=== PATIENT | female | born 1935 | race Caucasian/White ===

== ENCOUNTER 2022-06-29 11:20 | Inpatient (IN) | payer MEDICARE, BC ==
[~2022-06-29] VITALS: Ht 160 cm; Wt 57.2 kg
[2022-06-29 15:38] VITALS: BP 134/74
[2022-06-29] MEDS ORDERED: DEXTROSE 50%-WATER 25 GM/50 ML SYRINGE IVP PRN (16:30)
[2022-06-29] MEDS ORDERED: TACROLIMUS 0.1% 30 GM OINTMENT TP PRN (16:30)
[2022-06-29] MEDS: MetFORMIN HCL 500 MG TABLET PO SCH (18:55)
[2022-06-29] MEDS: INSULIN LISPRO 100 UNITS/ML SQ PRN ×2 (18:57→22:09)
[2022-06-29 19:16] LABS: GLUCOMETER DEV NAME(LOC) 2WR.2B; GLUCOSE,POINT OF CARE 239 MG/DL (70-110)
[2022-06-29 21:00] VITALS: BP 137/73
[2022-06-29] MEDS: SENNA 187 MG TABLET PO SCH (22:07)
[2022-06-29] MEDS: LevETIRAcetam 500 MG TABLET PO SCH (22:07)
[2022-06-29] MEDS: MELATONIN 3 MG TABLET PO SCH (22:07)
[2022-06-29] MEDS: ETHYL ALCOHOL 62% ANTISEPTIC NASAL SANITIZER 0.6 ML AMPUL NASAL SCH (22:07)
[2022-06-29] MEDS: DOCUSATE SODIUM 100 MG CAPSULE PO SCH (22:07)
[2022-06-29] MEDS: OMEGA-3/DHA/EPA/FISH OIL 1,000 MG CAPSULE PO SCH (22:07)
[2022-06-29 22:46] LABS: GLUCOMETER DEV NAME(LOC) 2WR.2B; GLUCOSE,POINT OF CARE 198 MG/DL (70-110)
[2022-06-30] MEDS: LEVOTHYROXINE SODIUM 88 MCG TABLET PO SCH (06:28)
[2022-06-30 07:10] LABS: BASOPHILS % (AUTO) 0.4 % (0.0-2.0); EOSINOPHILS % (AUTO) 0.3 % (1.0-6.0); HEMATOCRIT 28.3 % (36-46); HEMOGLOBIN 9.8 g/dL (12.0-16.0); LYMPHOCYTES # (AUTO) 2.4 K/uL (1.0-4.8); LYMPHOCYTES % (AUTO) 23.8 % (22.0-44.0); MEAN CORPUSCULAR HEMOGLOBIN 32.7 pg (26.0-34.0); MEAN CORPUSCULAR HGB CONC 34.6 G/dL (31.0-37.0); MEAN CORPUSCULAR VOLUME 94 fL (80-100); MONOCYTES # (AUTO) 0.5 K/uL (0.1-1.0); NEUTROPHILS % (AUTO) 70.5 % (40.0-70.0); PLATELET COUNT (AUTO) 271 K/uL (150-450); RED CELL DISTRIBUTION WIDTH 13.8 % (11.5-14.5)
[2022-06-30 07:40] LABS: ALANINE AMINOTRANSFERASE 14 U/L (12-78); ALBUMIN 2.8 g/dL (3.4-5.0); ALKALINE PHOSPHATASE 58 U/L (46-116); ANION GAP 8 mmol/L (8-16); ASPARTATE AMINOTRANSFERASE 11 U/L (15-37); BILIRUBIN,TOTAL 0.2 mg/dL (0.1-1.0); CALCIUM, TOTAL 9.6 mg/dL (8.8-10.5); CARBON DIOXIDE 27 mmol/L (22-29); CHLORIDE 100 mmol/L (98-107); CREATININE 0.66 mg/dL (0.60-1.30); GLUCOSE,RANDOM 140 mg/dL (70-110); POTASSIUM 3.9 mmol/L (3.5-5.1); SODIUM SERUM 135 mmol/L (136-145); UREA NITROGEN, BLOOD 9 mg/dL (7-18)
[2022-06-30 07:46] LABS: GLOMERULAR FILTR. RATE CALC > 60 mL/min (>60)
[2022-06-30] MEDS: MetFORMIN HCL 500 MG TABLET PO SCH ×2 (08:24→17:18)
[2022-06-30] MEDS: ASPIRIN 81 MG CHEWABLE TABLET PO SCH (08:26)
[2022-06-30] MEDS: CHOLECALCIFEROL (VIT D3) 1,000 UNITS [25 MCG] TABLET PO SCH (08:26)
[2022-06-30] MEDS: LevETIRAcetam 500 MG TABLET PO SCH ×2 (08:26→22:18)
[2022-06-30] MEDS: FAMOTIDINE 20 MG TABLET PO SCH (08:26)
[2022-06-30] MEDS: DOCUSATE SODIUM 100 MG CAPSULE PO SCH ×2 (08:27→22:18)
[2022-06-30] MEDS: MAGNESIUM OXIDE 400 MG TABLET PO SCH (08:27)
[2022-06-30] MEDS: OMEGA-3/DHA/EPA/FISH OIL 1,000 MG CAPSULE PO SCH ×2 (08:28→22:18)
[2022-06-30] MEDS: VITAMIN B COMPLEX/FOLIC ACID 1 TABLET PO SCH (08:28)
[2022-06-30] MEDS: EZETIMIBE 10 MG TABLET PO SCH (08:29)
[2022-06-30] MEDS: CITALOPRAM HYDROBROMIDE 10 MG TABLET PO SCH (08:29)
[2022-06-30] MEDS: LISINOPRIL 5 MG TABLET PO SCH (08:30)
[2022-06-30] MEDS: DEXAMETHASONE 1 MG TABLET PO SCH (08:30)
[2022-06-30] MEDS: LORATADINE 10 MG TABLET PO SCH (08:30)
[2022-06-30] MEDS: KETOCONAZOLE 2% 120 ML SHAMPOO TP SCH (08:31)
[2022-06-30] MEDS: CALCIUM CARBONATE 500 MG TABLET PO SCH (08:31)
[2022-06-30] MEDS: ETHYL ALCOHOL 62% ANTISEPTIC NASAL SANITIZER 0.6 ML AMPUL NASAL SCH ×2 (08:32→22:18)
[2022-06-30 08:39] VITALS: BP 121/61
[2022-06-30] MEDS: INSULIN LISPRO 100 UNITS/ML SQ PRN ×3 (08:39→17:37)
[2022-06-30] MEDS: ACETAMINOPHEN 325 MG TABLET PO PRN ×2 (08:43→15:08)
[2022-06-30 11:36] LABS: GLUCOMETER DEV NAME(LOC) 2WR.1C; GLUCOSE,POINT OF CARE 147 MG/DL (70-110)
[2022-06-30 12:01] LABS: GLUCOMETER DEV NAME(LOC) 2WR.2B; GLUCOSE,POINT OF CARE 164 MG/DL (70-110)
[2022-06-30 18:02] LABS: GLUCOMETER DEV NAME(LOC) 2WR.1C; GLUCOSE,POINT OF CARE 177 MG/DL (70-110)
[2022-06-30 20:30] VITALS: BP 107/51
[2022-06-30] MEDS: MELATONIN 3 MG TABLET PO SCH (22:18)
[2022-06-30] MEDS: SENNA 187 MG TABLET PO SCH (22:18)
[2022-06-30] MEDS: ENOXAPARIN SODIUM 30 MG/0.3 ML PF SYRINGE SQ SCH (22:18)
[2022-07-01 02:11] LABS: GLUCOMETER DEV NAME(LOC) 2WR.1C; GLUCOSE,POINT OF CARE 122 MG/DL (70-110)
[2022-07-01] MEDS: LEVOTHYROXINE SODIUM 88 MCG TABLET PO SCH (06:19)
[2022-07-01 07:06] LABS: GLUCOMETER DEV NAME(LOC) 2WR.2B; GLUCOSE,POINT OF CARE 126 MG/DL (70-110)
[2022-07-01] MEDS ORDERED: DOCUSATE SODIUM 283 MG/5 ML MINI-ENEMA PR PRN (07:45)
[2022-07-01] MEDS ORDERED: *NON-FORMULARY MED [ENTER DRUG, DOSE, FREQ IN COMMENTS] CLINICAL ONE (08:58)
[2022-07-01 09:05] VITALS: BP 140/63
[2022-07-01] MEDS: VITAMIN B COMPLEX/FOLIC ACID 1 TABLET PO SCH (09:13)
[2022-07-01] MEDS: LORATADINE 10 MG TABLET PO SCH (09:16)
[2022-07-01] MEDS: LISINOPRIL 5 MG TABLET PO SCH (09:16)
[2022-07-01] MEDS: CITALOPRAM HYDROBROMIDE 10 MG TABLET PO SCH (09:16)
[2022-07-01] MEDS: MAGNESIUM OXIDE 400 MG TABLET PO SCH (09:16)
[2022-07-01] MEDS: DEXAMETHASONE 1 MG TABLET PO SCH (09:16)
[2022-07-01] MEDS: MetFORMIN HCL 500 MG TABLET PO SCH ×2 (09:16→17:54)
[2022-07-01] MEDS: CALCIUM CARBONATE 500 MG TABLET PO SCH (09:16)
[2022-07-01] MEDS: EZETIMIBE 10 MG TABLET PO SCH (09:16)
[2022-07-01] MEDS: ENOXAPARIN SODIUM 30 MG/0.3 ML PF SYRINGE SQ SCH ×2 (09:16→20:12)
[2022-07-01] MEDS: FAMOTIDINE 20 MG TABLET PO SCH (09:17)
[2022-07-01] MEDS: OMEGA-3/DHA/EPA/FISH OIL 1,000 MG CAPSULE PO SCH ×2 (09:17→20:12)
[2022-07-01] MEDS: CHOLECALCIFEROL (VIT D3) 1,000 UNITS [25 MCG] TABLET PO SCH (09:17)
[2022-07-01] MEDS: ASPIRIN 81 MG CHEWABLE TABLET PO SCH (09:17)
[2022-07-01] MEDS: DOCUSATE SODIUM 250 MG CAPSULE PO SCH ×2 (09:17→20:13)
[2022-07-01] MEDS: LevETIRAcetam 500 MG TABLET PO SCH ×2 (09:17→20:12)
[2022-07-01] MEDS: ETHYL ALCOHOL 62% ANTISEPTIC NASAL SANITIZER 0.6 ML AMPUL NASAL SCH ×2 (09:18→20:13)
[2022-07-01] MEDS: [UNRECOGNIZED DRUG - OTHER] OU SCH ×4 (10:50→20:14)
[2022-07-01] MEDS ORDERED: *NON-FORMULARY MED [ENTER DRUG, DOSE, FREQ IN COMMENTS] CLINICAL SCH (12:00)
[2022-07-01] MEDS: INSULIN LISPRO 100 UNITS/ML SQ PRN ×3 (12:32→21:07)
[2022-07-01] MEDS: ACETAMINOPHEN 325 MG TABLET PO PRN ×2 (14:04→20:11)
[2022-07-01 14:16] LABS: GLUCOMETER DEV NAME(LOC) 2WR.2B; GLUCOSE,POINT OF CARE 229 MG/DL (70-110)
[2022-07-01] MEDS ORDERED: SODIUM PHOS/SODIUM BIPHOS 133 ML ENEMA PR PRN (17:15)
[2022-07-01] MEDS: DOCUSATE SODIUM 283 MG/5 ML MINI-ENEMA PR SCH (18:01)
[2022-07-01 20:11] VITALS: BP 114/56
[2022-07-01] MEDS: MELATONIN 3 MG TABLET PO SCH (20:12)
[2022-07-01] MEDS: SENNA 187 MG TABLET PO SCH (20:12)
[2022-07-01 20:21] LABS: GLUCOMETER DEV NAME(LOC) 2WR.2B; GLUCOSE,POINT OF CARE 148 MG/DL (70-110)
[2022-07-01 21:21] LABS: GLUCOMETER DEV NAME(LOC) 2WR.2B; GLUCOSE,POINT OF CARE 147 MG/DL (70-110)
[2022-07-02] MEDS: LEVOTHYROXINE SODIUM 88 MCG TABLET PO SCH (06:07)
[2022-07-02] MEDS: ACETAMINOPHEN 325 MG TABLET PO PRN ×2 (06:32→16:12)
[2022-07-02 07:28] VITALS: BP 117/79
[2022-07-02 07:40] LABS: GLUCOMETER DEV NAME(LOC) 2WR.2B; GLUCOSE,POINT OF CARE 117 MG/DL (70-110)
[2022-07-02] MEDS: ETHYL ALCOHOL 62% ANTISEPTIC NASAL SANITIZER 0.6 ML AMPUL NASAL SCH ×2 (08:20→20:00)
[2022-07-02] MEDS: MetFORMIN HCL 500 MG TABLET PO SCH ×2 (08:20→16:01)
[2022-07-02] MEDS: [UNRECOGNIZED DRUG - OTHER] OU SCH ×4 (08:21→20:00)
[2022-07-02] MEDS: CITALOPRAM HYDROBROMIDE 10 MG TABLET PO SCH (08:22)
[2022-07-02] MEDS: LORATADINE 10 MG TABLET PO SCH (08:22)
[2022-07-02] MEDS: VITAMIN B COMPLEX/FOLIC ACID 1 TABLET PO SCH (08:22)
[2022-07-02] MEDS: ASPIRIN 81 MG CHEWABLE TABLET PO SCH (08:22)
[2022-07-02] MEDS: CALCIUM CARBONATE 500 MG TABLET PO SCH (08:23)
[2022-07-02] MEDS: MAGNESIUM OXIDE 400 MG TABLET PO SCH (08:23)
[2022-07-02] MEDS: LevETIRAcetam 500 MG TABLET PO SCH ×2 (08:23→20:01)
[2022-07-02] MEDS: OMEGA-3/DHA/EPA/FISH OIL 1,000 MG CAPSULE PO SCH ×2 (08:23→20:01)
[2022-07-02] MEDS: FAMOTIDINE 20 MG TABLET PO SCH (08:23)
[2022-07-02] MEDS: DEXAMETHASONE 1 MG TABLET PO SCH (08:23)
[2022-07-02] MEDS: DOCUSATE SODIUM 250 MG CAPSULE PO SCH ×2 (08:23→20:01)
[2022-07-02] MEDS: LISINOPRIL 5 MG TABLET PO SCH (08:24)
[2022-07-02] MEDS: CHOLECALCIFEROL (VIT D3) 1,000 UNITS [25 MCG] TABLET PO SCH (08:24)
[2022-07-02] MEDS: ENOXAPARIN SODIUM 30 MG/0.3 ML PF SYRINGE SQ SCH ×2 (08:24→20:01)
[2022-07-02] MEDS: EZETIMIBE 10 MG TABLET PO SCH (08:24)
[2022-07-02] MEDS: INSULIN LISPRO 100 UNITS/ML SQ PRN ×3 (12:49→20:45)
[2022-07-02] MEDS: DOCUSATE SODIUM 283 MG/5 ML MINI-ENEMA PR SCH (18:00)
[2022-07-02] MEDS: SENNA 187 MG TABLET PO SCH (20:01)
[2022-07-02] MEDS: MELATONIN 3 MG TABLET PO SCH (20:01)
[2022-07-02 20:20] VITALS: BP 127/58
[2022-07-02 21:01] LABS: GLUCOMETER DEV NAME(LOC) 2WR.2B; GLUCOSE,POINT OF CARE 154 MG/DL (70-110)
[2022-07-03] MEDS ORDERED: LISI-892 PO (03:18)
[2022-07-03] MEDS ORDERED: ASPI-1450 PO (03:18)
[2022-07-03] MEDS ORDERED: VITA-328 PO (03:18)
[2022-07-03] MEDS ORDERED: METF-1211 PO (03:18)
[2022-07-03] MEDS ORDERED: LORA10TA7 PO (03:18)
[2022-07-03] MEDS ORDERED: CITA10TA99 PO (03:18)
[2022-07-03] MEDS ORDERED: LEVO88TA4 PO (03:18)
[2022-07-03] MEDS ORDERED: CALC-1085 PO (03:18)
[2022-07-03] MEDS ORDERED: LEVE500S9 PO (03:18)
[2022-07-03] MEDS ORDERED: CALC500T37 PO (03:18)
[2022-07-03] MEDS ORDERED: EZET10TA57 PO (03:18)
[2022-07-03 05:56] LABS: GLUCOMETER DEV NAME(LOC) 2WR.1C; GLUCOSE,POINT OF CARE 145 MG/DL (70-110)
[2022-07-03 05:56] LABS: GLUCOMETER DEV NAME(LOC) 2WR.1C; GLUCOSE,POINT OF CARE 158 MG/DL (70-110)
[2022-07-03] MEDS: LEVOTHYROXINE SODIUM 88 MCG TABLET PO SCH (06:08)
[2022-07-03 06:26] LABS: GLUCOMETER DEV NAME(LOC) 2WR.1C; GLUCOSE,POINT OF CARE 173 MG/DL (70-110)
[2022-07-03 07:30] VITALS: BP 115/69
[2022-07-03 08:56] LABS: ANION GAP 3 mmol/L (8-16); CALCIUM, TOTAL 8.7 mg/dL (8.8-10.5); CARBON DIOXIDE 30 mmol/L (22-29); CHLORIDE 97 mmol/L (98-107); CREATININE 0.61 mg/dL (0.60-1.30); GLOMERULAR FILTR. RATE CALC > 60 mL/min (>60); GLUCOSE,RANDOM 160 mg/dL (70-110); POTASSIUM 4.1 mmol/L (3.5-5.1); SODIUM SERUM 130 mmol/L (136-145); UREA NITROGEN, BLOOD 22 mg/dL (7-18)
[2022-07-03] MEDS: ETHYL ALCOHOL 62% ANTISEPTIC NASAL SANITIZER 0.6 ML AMPUL NASAL SCH ×2 (09:48→21:08)
[2022-07-03] MEDS: [UNRECOGNIZED DRUG - OTHER] OU SCH ×4 (09:48→21:08)
[2022-07-03] MEDS: MetFORMIN HCL 500 MG TABLET PO SCH ×2 (09:48→17:16)
[2022-07-03] MEDS: DOCUSATE SODIUM 250 MG CAPSULE PO SCH ×2 (09:49→21:08)
[2022-07-03] MEDS: VITAMIN B COMPLEX/FOLIC ACID 1 TABLET PO SCH (09:49)
[2022-07-03] MEDS: DEXAMETHASONE 1 MG TABLET PO SCH (09:49)
[2022-07-03] MEDS: CITALOPRAM HYDROBROMIDE 10 MG TABLET PO SCH (09:49)
[2022-07-03] MEDS: ASPIRIN 81 MG CHEWABLE TABLET PO SCH (09:49)
[2022-07-03] MEDS: LORATADINE 10 MG TABLET PO SCH (09:49)
[2022-07-03] MEDS: FAMOTIDINE 20 MG TABLET PO SCH (09:50)
[2022-07-03] MEDS: MAGNESIUM OXIDE 400 MG TABLET PO SCH (09:50)
[2022-07-03] MEDS: OMEGA-3/DHA/EPA/FISH OIL 1,000 MG CAPSULE PO SCH ×2 (09:50→21:08)
[2022-07-03] MEDS: LevETIRAcetam 500 MG TABLET PO SCH ×2 (09:50→21:06)
[2022-07-03] MEDS: CALCIUM CARBONATE 500 MG TABLET PO SCH (09:50)
[2022-07-03] MEDS: EZETIMIBE 10 MG TABLET PO SCH (09:50)
[2022-07-03] MEDS: LISINOPRIL 5 MG TABLET PO SCH (09:50)
[2022-07-03] MEDS: CHOLECALCIFEROL (VIT D3) 1,000 UNITS [25 MCG] TABLET PO SCH (09:50)
[2022-07-03] MEDS: ENOXAPARIN SODIUM 30 MG/0.3 ML PF SYRINGE SQ SCH ×2 (09:51→21:05)
[2022-07-03] MEDS: KETOCONAZOLE 2% 120 ML SHAMPOO TP SCH (09:51)
[2022-07-03] MEDS: ACETAMINOPHEN 325 MG TABLET PO PRN (09:54)
[2022-07-03] MEDS: INSULIN LISPRO 100 UNITS/ML SQ PRN ×3 (09:55→21:13)
[2022-07-03] MEDS: SODIUM CHLORIDE 1 GM TABLET PO SCH ×2 (10:05→21:07)
[2022-07-03 12:11] LABS: GLUCOMETER DEV NAME(LOC) 2WR.1C; GLUCOSE,POINT OF CARE 216 MG/DL (70-110)
[2022-07-03 16:22] LABS: APPEARANCE,URINE HAZY (CLEAR); BILIRUBIN,URINE NEGATIVE (NEGATIVE); GLUCOSE, URINE (UA) >=1000 mg/dL (NEGATIVE); KETONES,URINE NEGATIVE (NEGATIVE); LEUKOCYTE ESTERASE ,URINE MODERATE (NEGATIVE); NITRATE,URINE NEGATIVE (NEGATIVE); OCCULT BLOOD,URINE NEGATIVE (NEGATIVE); PH,URINE 7.5 (5.0-8.0); PROTEIN,URINE NEGATIVE (NEGATIVE); SPECIFIC GRAVITIY, URINE 1.019 (1.003-1.030); UROBILINOGEN,URINE <=1.0 mg/dL (<=1.0)
[2022-07-03 16:43] LABS: BACTERIA,URINE Many /HPF (None Seen); RBC,URINE None Seen /HPF (0-2)
[2022-07-03 17:56] LABS: GLUCOMETER DEV NAME(LOC) 2WR.1C; GLUCOSE,POINT OF CARE 134 MG/DL (70-110)
[2022-07-03] MEDS: BISACODYL 10 MG RECTAL RECTAL SUPPOSITORY PR SCH (18:41)
[2022-07-03 20:00] VITALS: BP 106/55
[2022-07-03 20:51] LABS: GLUCOMETER DEV NAME(LOC) 2WR.2B; GLUCOSE,POINT OF CARE 215 MG/DL (70-110)
[2022-07-03] MEDS: NITROFURANTOIN MONOHYD/M-CRYST 100 MG CAPSULE [MACROBID] PO SCH (21:06)
[2022-07-03] MEDS: SENNA 187 MG TABLET PO SCH (21:07)
[2022-07-03] MEDS: MELATONIN 3 MG TABLET PO SCH (21:08)
[2022-07-04 06:36] LABS: GLUCOMETER DEV NAME(LOC) 2WR.2B; GLUCOSE,POINT OF CARE 146 MG/DL (70-110)
[2022-07-04] MEDS: LEVOTHYROXINE SODIUM 88 MCG TABLET PO SCH (06:41)
[2022-07-04] MEDS: MetFORMIN HCL 500 MG TABLET PO SCH ×2 (08:11→17:28)
[2022-07-04] MEDS: INSULIN LISPRO 100 UNITS/ML SQ PRN ×4 (08:18→21:12)
[2022-07-04 08:40] VITALS: BP 106/53
[2022-07-04] MEDS: LISINOPRIL 5 MG TABLET PO SCH (09:00)
[2022-07-04] MEDS: ETHYL ALCOHOL 62% ANTISEPTIC NASAL SANITIZER 0.6 ML AMPUL NASAL SCH ×2 (10:17→21:08)
[2022-07-04] MEDS: ASPIRIN 81 MG CHEWABLE TABLET PO SCH (10:18)
[2022-07-04] MEDS: LevETIRAcetam 500 MG TABLET PO SCH ×2 (10:22→21:09)
[2022-07-04] MEDS: MAGNESIUM OXIDE 400 MG TABLET PO SCH (10:24)
[2022-07-04] MEDS: CHOLECALCIFEROL (VIT D3) 1,000 UNITS [25 MCG] TABLET PO SCH (10:26)
[2022-07-04] MEDS: ENOXAPARIN SODIUM 30 MG/0.3 ML PF SYRINGE SQ SCH ×2 (10:27→21:10)
[2022-07-04] MEDS: DOCUSATE SODIUM 250 MG CAPSULE PO SCH ×2 (10:28→21:00)
[2022-07-04 10:34] VITALS: BP 98/53
[2022-07-04] MEDS: CITALOPRAM HYDROBROMIDE 10 MG TABLET PO SCH (10:43)
[2022-07-04] MEDS: VITAMIN B COMPLEX/FOLIC ACID 1 TABLET PO SCH (10:43)
[2022-07-04] MEDS: NITROFURANTOIN MONOHYD/M-CRYST 100 MG CAPSULE [MACROBID] PO SCH ×2 (10:44→21:09)
[2022-07-04] MEDS: LORATADINE 10 MG TABLET PO SCH (10:44)
[2022-07-04] MEDS: SODIUM CHLORIDE 1 GM TABLET PO SCH ×2 (10:47→21:10)
[2022-07-04] MEDS: OMEGA-3/DHA/EPA/FISH OIL 1,000 MG CAPSULE PO SCH ×2 (10:51→21:09)
[2022-07-04] MEDS: EZETIMIBE 10 MG TABLET PO SCH (10:51)
[2022-07-04] MEDS: CALCIUM CARBONATE 500 MG TABLET PO SCH (10:52)
[2022-07-04] MEDS: [UNRECOGNIZED DRUG - OTHER] OU SCH ×4 (11:01→21:09)
[2022-07-04] MEDS: FAMOTIDINE 20 MG TABLET PO SCH (17:12)
[2022-07-04 17:41] LABS: GLUCOMETER DEV NAME(LOC) 2WR.2B; GLUCOSE,POINT OF CARE 179 MG/DL (70-110)
[2022-07-04 17:41] LABS: GLUCOMETER DEV NAME(LOC) 2WR.2B; GLUCOSE,POINT OF CARE 164 MG/DL (70-110)
[2022-07-04] MEDS: ACETAMINOPHEN 325 MG TABLET PO PRN (17:52)
[2022-07-04] MEDS: BISACODYL 10 MG RECTAL RECTAL SUPPOSITORY PR SCH (18:26)
[2022-07-04 21:00] VITALS: BP 142/61
[2022-07-04] MEDS: SENNA 187 MG TABLET PO SCH (21:00)
[2022-07-04] MEDS: MELATONIN 3 MG TABLET PO SCH (21:10)
[2022-07-04 21:27] LABS: GLUCOMETER DEV NAME(LOC) 2WR.2B; GLUCOSE,POINT OF CARE 197 MG/DL (70-110)
[2022-07-05] VITALS (11 sets, daily range): BP systolic 96–129; BP diastolic 49–68
[2022-07-05] MEDS ORDERED: FAMO20 PO (05:52)
[2022-07-05] MEDS: LEVOTHYROXINE SODIUM 88 MCG TABLET PO SCH (06:19)
[2022-07-05] MEDS: FAMOTIDINE 20 MG TABLET PO SCH (06:19)
[2022-07-05 06:51] LABS: GLUCOMETER DEV NAME(LOC) 2WR.1C; GLUCOSE,POINT OF CARE 145 MG/DL (70-110)
[2022-07-05 07:16] LABS: BASOPHILS % (AUTO) 0.3 % (0.0-2.0); EOSINOPHILS % (AUTO) 0.6 % (1.0-6.0); LYMPHOCYTES # (AUTO) 2.6 K/uL (1.0-4.8); LYMPHOCYTES % (AUTO) 34.5 % (22.0-44.0); MEAN CORPUSCULAR HEMOGLOBIN 32.1 pg (26.0-34.0); MEAN CORPUSCULAR HGB CONC 33.6 G/dL (31.0-37.0); MEAN CORPUSCULAR VOLUME 95 fL (80-100); MONOCYTES # (AUTO) 0.5 K/uL (0.1-1.0); MONOCYTES % (AUTO) 6.5 % (2.0-9.0); NEUTROPHILS # (AUTO) 4.3 K/uL (1.8-7.7); NEUTROPHILS % (AUTO) 58.1 % (40.0-70.0); PLATELET COUNT (AUTO) 344 K/uL (150-450); RED BLOOD CELL COUNT(AUTO) 2.19 MIL/uL (4.00-5.20); RED CELL DISTRIBUTION WIDTH 13.9 % (11.5-14.5)
[2022-07-05 07:20] LABS: ANION GAP 10 mmol/L (8-16); CALCIUM, TOTAL 9.1 mg/dL (8.8-10.5); CARBON DIOXIDE 30 mmol/L (22-29); CHLORIDE 101 mmol/L (98-107); CREATININE 0.63 mg/dL (0.60-1.30); GLUCOSE,RANDOM 154 mg/dL (70-110); POTASSIUM 4.3 mmol/L (3.5-5.1); SODIUM SERUM 141 mmol/L (136-145); UREA NITROGEN, BLOOD 14 mg/dL (7-18)
[2022-07-05 07:22] LABS: GLOMERULAR FILTR. RATE CALC > 60 mL/min (>60); HEMATOCRIT 20.8 % (36-46)
[2022-07-05] MEDS: MetFORMIN HCL 500 MG TABLET PO SCH ×2 (07:56→16:02)
[2022-07-05] MEDS: ENOXAPARIN SODIUM 30 MG/0.3 ML PF SYRINGE SQ SCH (08:11)
[2022-07-05] MEDS: ETHYL ALCOHOL 62% ANTISEPTIC NASAL SANITIZER 0.6 ML AMPUL NASAL SCH ×2 (08:11→21:27)
[2022-07-05] MEDS: LevETIRAcetam 500 MG TABLET PO SCH ×2 (08:12→21:28)
[2022-07-05] MEDS: MAGNESIUM OXIDE 400 MG TABLET PO SCH (08:12)
[2022-07-05] MEDS: ASPIRIN 81 MG CHEWABLE TABLET PO SCH (08:12)
[2022-07-05] MEDS: CHOLECALCIFEROL (VIT D3) 1,000 UNITS [25 MCG] TABLET PO SCH (08:12)
[2022-07-05] MEDS: KETOCONAZOLE 2% 120 ML SHAMPOO TP SCH (08:13)
[2022-07-05] MEDS: NITROFURANTOIN MONOHYD/M-CRYST 100 MG CAPSULE [MACROBID] PO SCH ×2 (08:13→21:28)
[2022-07-05] MEDS: OMEGA-3/DHA/EPA/FISH OIL 1,000 MG CAPSULE PO SCH ×2 (08:13→21:28)
[2022-07-05] MEDS: VITAMIN B COMPLEX/FOLIC ACID 1 TABLET PO SCH (08:14)
[2022-07-05] MEDS: CALCIUM CARBONATE 500 MG TABLET PO SCH (08:14)
[2022-07-05] MEDS: CITALOPRAM HYDROBROMIDE 10 MG TABLET PO SCH (08:14)
[2022-07-05] MEDS: SODIUM CHLORIDE 1 GM TABLET PO SCH (08:14)
[2022-07-05] MEDS: LORATADINE 10 MG TABLET PO SCH (08:15)
[2022-07-05] MEDS: [UNRECOGNIZED DRUG - OTHER] OU SCH ×4 (08:16→21:46)
[2022-07-05] MEDS: DOCUSATE SODIUM 250 MG CAPSULE PO SCH ×2 (08:25→21:44)
[2022-07-05] MEDS: EZETIMIBE 10 MG TABLET PO SCH (08:30)
[2022-07-05] MEDS: LISINOPRIL 5 MG TABLET PO SCH (08:30)
[2022-07-05] MEDS: INSULIN LISPRO 100 UNITS/ML SQ PRN ×4 (08:46→22:21)
[2022-07-05] MEDS ORDERED: LEVE500T20 PO (11:01)
[2022-07-05] MEDS: ACETAMINOPHEN 325 MG TABLET PO PRN (13:31)
[2022-07-05 15:37] LABS: EOSINOPHILS % (AUTO) 0.5 % (1.0-6.0); LYMPHOCYTES # (AUTO) 2.3 K/uL (1.0-4.8); MONOCYTES # (AUTO) 0.5 K/uL (0.1-1.0)
[2022-07-05 15:40] LABS: BASOPHILS % (AUTO) 0.2 % (0.0-2.0); LYMPHOCYTES % (AUTO) 29.4 % (22.0-44.0); MEAN CORPUSCULAR HEMOGLOBIN 32.7 pg (26.0-34.0); MEAN CORPUSCULAR HGB CONC 34.3 G/dL (31.0-37.0); MEAN CORPUSCULAR VOLUME 95 fL (80-100); MONOCYTES % (AUTO) 6.7 % (2.0-9.0); NEUTROPHILS % (AUTO) 63.2 % (40.0-70.0); PLATELET COUNT (AUTO) 355 K/uL (150-450); RED BLOOD CELL COUNT(AUTO) 2.09 MIL/uL (4.00-5.20); RED CELL DISTRIBUTION WIDTH 14.3 % (11.5-14.5)
[2022-07-05 15:44] LABS: HEMATOCRIT 19.9 % (36-46); HEMOGLOBIN 6.8 g/dL (12.0-16.0)
[2022-07-05 16:07] LABS: % IRON SATURATION 8.4 % (22-44)
[2022-07-05] MEDS ORDERED: ACETAMINOPHEN 325 MG TABLET PO ONE (16:15)
[2022-07-05] MEDS ORDERED: DiphenhydrAMINE HCL 25 MG CAPSULE PO ONE (16:15)
[2022-07-05] MEDS ORDERED: OMEPRAZOLE 20 MG CAPSULE PO SCH (16:30)
[2022-07-05] MEDS ORDERED: SODIUM CHLORIDE 0.9% 500 ML IV ONE (16:40)
[2022-07-05] MEDS: BISACODYL 10 MG RECTAL RECTAL SUPPOSITORY PR SCH (17:59)
[2022-07-05 18:21] LABS: GLUCOMETER DEV NAME(LOC) 2WR.2B; GLUCOSE,POINT OF CARE 166 MG/DL (70-110)
[2022-07-05] MEDS: SENNA 187 MG TABLET PO SCH (21:28)
[2022-07-05] MEDS: MELATONIN 3 MG TABLET PO SCH (21:28)
[2022-07-05] MEDS: PANTOPRAZOLE SODIUM 80 MG in SODIUM CHLORIDE 0.9% 100 ML IV SCH (22:33)
[2022-07-06 00:51] LABS: GLUCOMETER DEV NAME(LOC) 2WR.1C; GLUCOSE,POINT OF CARE 189 MG/DL (70-110)
[2022-07-06 00:51] LABS: GLUCOMETER DEV NAME(LOC) 2WR.2B; GLUCOSE,POINT OF CARE 158 MG/DL (70-110)
[2022-07-06] MEDS: LEVOTHYROXINE SODIUM 88 MCG TABLET PO SCH (06:14)
[2022-07-06 06:31] LABS: GLUCOMETER DEV NAME(LOC) 2WR.1C; GLUCOSE,POINT OF CARE 152 MG/DL (70-110)
[2022-07-06 07:12] LABS: BASOPHILS % (AUTO) 0.4 % (0.0-2.0); EOSINOPHILS % (AUTO) 0.7 % (1.0-6.0); HEMATOCRIT 25.2 % (36-46); HEMOGLOBIN 8.6 g/dL (12.0-16.0); LYMPHOCYTES # (AUTO) 2.1 K/uL (1.0-4.8); LYMPHOCYTES % (AUTO) 31.5 % (22.0-44.0); MEAN CORPUSCULAR HEMOGLOBIN 31.4 pg (26.0-34.0); MEAN CORPUSCULAR HGB CONC 34.2 G/dL (31.0-37.0); MEAN CORPUSCULAR VOLUME 92 fL (80-100); MONOCYTES # (AUTO) 0.4 K/uL (0.1-1.0); MONOCYTES % (AUTO) 6.2 % (2.0-9.0); NEUTROPHILS # (AUTO) 4.2 K/uL (1.8-7.7); NEUTROPHILS % (AUTO) 61.2 % (40.0-70.0); PLATELET COUNT (AUTO) 363 K/uL (150-450); RED BLOOD CELL COUNT(AUTO) 2.75 MIL/uL (4.00-5.20); RED CELL DISTRIBUTION WIDTH 16.4 % (11.5-14.5)
[2022-07-06 07:30] LABS: INR 0.9 (0.9-1.1)
[2022-07-06 08:00] VITALS: BP 128/57
[2022-07-06] MEDS: MetFORMIN HCL 500 MG TABLET PO SCH ×2 (08:07→16:13)
[2022-07-06] MEDS: CHOLECALCIFEROL (VIT D3) 1,000 UNITS [25 MCG] TABLET PO SCH (08:22)
[2022-07-06] MEDS: DOCUSATE SODIUM 250 MG CAPSULE PO SCH ×2 (08:22→20:04)
[2022-07-06] MEDS: LevETIRAcetam 500 MG TABLET PO SCH ×2 (08:22→20:05)
[2022-07-06] MEDS: MAGNESIUM OXIDE 400 MG TABLET PO SCH (08:22)
[2022-07-06] MEDS: LORATADINE 10 MG TABLET PO SCH (08:23)
[2022-07-06] MEDS: OMEGA-3/DHA/EPA/FISH OIL 1,000 MG CAPSULE PO SCH ×2 (08:23→20:05)
[2022-07-06] MEDS: CALCIUM CARBONATE 500 MG TABLET PO SCH (08:23)
[2022-07-06] MEDS: VITAMIN B COMPLEX/FOLIC ACID 1 TABLET PO SCH (08:23)
[2022-07-06] MEDS: CITALOPRAM HYDROBROMIDE 10 MG TABLET PO SCH (08:23)
[2022-07-06] MEDS: NITROFURANTOIN MONOHYD/M-CRYST 100 MG CAPSULE [MACROBID] PO SCH ×2 (08:24→20:05)
[2022-07-06] MEDS: [UNRECOGNIZED DRUG - OTHER] OU SCH ×4 (08:24→20:04)
[2022-07-06] MEDS: ETHYL ALCOHOL 62% ANTISEPTIC NASAL SANITIZER 0.6 ML AMPUL NASAL SCH ×2 (08:24→20:04)
[2022-07-06] MEDS: EZETIMIBE 10 MG TABLET PO SCH (08:24)
[2022-07-06] MEDS: INSULIN LISPRO 100 UNITS/ML SQ PRN ×2 (08:25→12:43)
[2022-07-06] MEDS: PANTOPRAZOLE SODIUM 80 MG in SODIUM CHLORIDE 0.9% 100 ML IV SCH ×2 (08:46→22:11)
[2022-07-06] MEDS: ACETAMINOPHEN 325 MG TABLET PO PRN ×2 (10:01→14:07)
[2022-07-06] MEDS: SOD FERRIC GLUC COMPLX/SUCROSE 125 MG in SODIUM CHLORIDE 0.9% 100 ML IV SCH (10:45)
[2022-07-06 16:23] LABS: COVID AG,FIA SOURCE NASAL SWAB
[2022-07-06 17:31] LABS: GLUCOMETER DEV NAME(LOC) 2WR.1C; GLUCOSE,POINT OF CARE 141 MG/DL (70-110)
[2022-07-06] MEDS: BISACODYL 10 MG RECTAL RECTAL SUPPOSITORY PR SCH (18:20)
[2022-07-06] MEDS: MELATONIN 3 MG TABLET PO SCH (20:05)
[2022-07-06] MEDS: SENNA 187 MG TABLET PO SCH (20:05)
[2022-07-06] MEDS: ONDANSETRON HCL 4 MG TABLET PO PRN (20:22)
[2022-07-06 20:45] VITALS: BP 126/58
[2022-07-06 21:11] LABS: GLUCOMETER DEV NAME(LOC) 2WR.2B; GLUCOSE,POINT OF CARE 161 MG/DL (70-110)
[2022-07-07 01:51] LABS: GLUCOMETER DEV NAME(LOC) 2WR.1C; GLUCOSE,POINT OF CARE 117 MG/DL (70-110)
[2022-07-07] MEDS ORDERED: RINGERS SOLUTION,LACTATED 1,000 ML IV ONE ×2 (05:30→05:55)
[2022-07-07 06:00] VITALS: BP 133/55
[2022-07-07 06:26] LABS: GLUCOMETER DEV NAME(LOC) 2WR.2B; GLUCOSE,POINT OF CARE 140 MG/DL (70-110)
[2022-07-07 07:50] VITALS: BP 140/57
[2022-07-07] MEDS: MetFORMIN HCL 500 MG TABLET PO SCH ×2 (07:56→17:07)
[2022-07-07] MEDS: LEVOTHYROXINE SODIUM 88 MCG TABLET PO SCH (07:57)
[2022-07-07] MEDS: [UNRECOGNIZED DRUG - OTHER] OU SCH ×4 (08:11→20:20)
[2022-07-07] MEDS: ETHYL ALCOHOL 62% ANTISEPTIC NASAL SANITIZER 0.6 ML AMPUL NASAL SCH ×2 (08:11→20:19)
[2022-07-07] MEDS: EZETIMIBE 10 MG TABLET PO SCH (08:12)
[2022-07-07] MEDS: VITAMIN B COMPLEX/FOLIC ACID 1 TABLET PO SCH (08:12)
[2022-07-07] MEDS: OMEGA-3/DHA/EPA/FISH OIL 1,000 MG CAPSULE PO SCH ×2 (08:12→20:19)
[2022-07-07] MEDS: LORATADINE 10 MG TABLET PO SCH (08:12)
[2022-07-07] MEDS: CALCIUM CARBONATE 500 MG TABLET PO SCH (08:12)
[2022-07-07] MEDS: KETOCONAZOLE 2% 120 ML SHAMPOO TP SCH (08:13)
[2022-07-07] MEDS: CITALOPRAM HYDROBROMIDE 10 MG TABLET PO SCH (08:13)
[2022-07-07] MEDS: NITROFURANTOIN MONOHYD/M-CRYST 100 MG CAPSULE [MACROBID] PO SCH ×2 (08:13→20:19)
[2022-07-07] MEDS: MAGNESIUM OXIDE 400 MG TABLET PO SCH (08:25)
[2022-07-07] MEDS: CHOLECALCIFEROL (VIT D3) 1,000 UNITS [25 MCG] TABLET PO SCH (08:25)
[2022-07-07] MEDS: LevETIRAcetam 500 MG TABLET PO SCH ×2 (08:25→20:19)
[2022-07-07] MEDS: DOCUSATE SODIUM 250 MG CAPSULE PO SCH ×2 (08:25→20:18)
[2022-07-07 08:58] LABS: BASOPHILS % (AUTO) 0.6 % (0.0-2.0); EOSINOPHILS % (AUTO) 0.7 % (1.0-6.0); LYMPHOCYTES # (AUTO) 1.7 K/uL (1.0-4.8); MEAN CORPUSCULAR HEMOGLOBIN 31.8 pg (26.0-34.0); MEAN CORPUSCULAR HGB CONC 34.4 G/dL (31.0-37.0); MEAN CORPUSCULAR VOLUME 92 fL (80-100); MONOCYTES # (AUTO) 0.4 K/uL (0.1-1.0); MONOCYTES % (AUTO) 4.8 % (2.0-9.0); NEUTROPHILS % (AUTO) 72.9 % (40.0-70.0); PLATELET COUNT (AUTO) 447 K/uL (150-450); RED BLOOD CELL COUNT(AUTO) 3.14 MIL/uL (4.00-5.20); RED CELL DISTRIBUTION WIDTH 16.7 % (11.5-14.5)
[2022-07-07 09:03] LABS: ANION GAP 12 mmol/L (8-16); CALCIUM, TOTAL 9.5 mg/dL (8.8-10.5); CARBON DIOXIDE 33 mmol/L (22-29); CHLORIDE 96 mmol/L (98-107); CREATININE 0.73 mg/dL (0.60-1.30); GLUCOSE,RANDOM 215 mg/dL (70-110); POTASSIUM 4.4 mmol/L (3.5-5.1); SODIUM SERUM 141 mmol/L (136-145); UREA NITROGEN, BLOOD 9 mg/dL (7-18)
[2022-07-07 09:15] LABS: GLOMERULAR FILTR. RATE CALC > 60 mL/min (>60)
[2022-07-07] MEDS: SOD FERRIC GLUC COMPLX/SUCROSE 125 MG in SODIUM CHLORIDE 0.9% 100 ML IV SCH (10:20)
[2022-07-07 10:29] VITALS: BP 133/59
[2022-07-07] MEDS: PANTOPRAZOLE SODIUM 40 MG/VIAL IVP SCH ×2 (11:22→20:20)
[2022-07-07] MEDS ORDERED: LIDOCAINE/PF 2% 5 ML VIAL IM ONE (12:00)
[2022-07-07] MEDS ORDERED: PROPOFOL 1% 20 ML VIAL IVP ONE (12:00)
[2022-07-07 12:06] LABS: GLUCOMETER DEV NAME(LOC) 2WR.2B; GLUCOSE,POINT OF CARE 222 MG/DL (70-110)
[2022-07-07] MEDS: INSULIN LISPRO 100 UNITS/ML SQ PRN ×3 (12:24→21:19)
[2022-07-07] MEDS: ACETAMINOPHEN 325 MG TABLET PO PRN (14:08)
[2022-07-07] MEDS ORDERED: NALOXONE HCL 0.4 MG/ML VIAL ONE (15:21)
[2022-07-07] MEDS ORDERED: DiphenhydrAMINE HCL 50 MG/ML VIAL ONE (15:21)
[2022-07-07] MEDS ORDERED: EPINEPHrine 1:10,000 [1 MG/10 ML] SYRINGE ONE (15:21)
[2022-07-07] MEDS ORDERED: SODIUM TETRADECYL SULFATE 3% 60 MG/2 ML VIAL IVP ONE (15:21)
[2022-07-07] MEDS ORDERED: FLUMAZENIL 0.1 MG/ML 5 ML VIAL IVP ONE (15:21)
[2022-07-07] MEDS ORDERED: ATROPINE SULFATE 0.1 MG/ML 10 ML SYRINGE IVP ONE (15:22)
[2022-07-07 17:41] LABS: GLUCOMETER DEV NAME(LOC) 2WR.2B; GLUCOSE,POINT OF CARE 156 MG/DL (70-110)
[2022-07-07] MEDS: BISACODYL 10 MG RECTAL RECTAL SUPPOSITORY PR SCH (18:01)
[2022-07-07 20:01] VITALS: BP 122/57
[2022-07-07] MEDS: SENNA 187 MG TABLET PO SCH (20:18)
[2022-07-07] MEDS: MELATONIN 3 MG TABLET PO SCH (20:19)
[2022-07-07 22:26] LABS: GLUCOMETER DEV NAME(LOC) 2WR.2B; GLUCOSE,POINT OF CARE 144 MG/DL (70-110)
[2022-07-08] MEDS: LEVOTHYROXINE SODIUM 88 MCG TABLET PO SCH (06:05)
[2022-07-08 06:36] LABS: GLUCOMETER DEV NAME(LOC) 2WR.1C; GLUCOSE,POINT OF CARE 183 MG/DL (70-110)
[2022-07-08] MEDS: INSULIN LISPRO 100 UNITS/ML SQ PRN ×3 (07:32→20:52)
[2022-07-08] MEDS: PANTOPRAZOLE SODIUM 40 MG/VIAL IVP SCH ×2 (07:35→20:57)
[2022-07-08] MEDS: [UNRECOGNIZED DRUG - OTHER] OU SCH ×4 (07:35→21:04)
[2022-07-08] MEDS: DOCUSATE SODIUM 250 MG CAPSULE PO SCH ×2 (07:36→20:59)
[2022-07-08] MEDS: NITROFURANTOIN MONOHYD/M-CRYST 100 MG CAPSULE [MACROBID] PO SCH (07:36)
[2022-07-08] MEDS: CALCIUM CARBONATE 500 MG TABLET PO SCH (07:36)
[2022-07-08] MEDS: OMEGA-3/DHA/EPA/FISH OIL 1,000 MG CAPSULE PO SCH ×2 (07:36→20:58)
[2022-07-08] MEDS: LevETIRAcetam 500 MG TABLET PO SCH ×2 (07:36→20:59)
[2022-07-08] MEDS: EZETIMIBE 10 MG TABLET PO SCH (07:36)
[2022-07-08] MEDS: VITAMIN B COMPLEX/FOLIC ACID 1 TABLET PO SCH (07:36)
[2022-07-08] MEDS: LORATADINE 10 MG TABLET PO SCH (07:36)
[2022-07-08] MEDS: MAGNESIUM OXIDE 400 MG TABLET PO SCH (07:36)
[2022-07-08] MEDS: CHOLECALCIFEROL (VIT D3) 1,000 UNITS [25 MCG] TABLET PO SCH (07:36)
[2022-07-08] MEDS: CITALOPRAM HYDROBROMIDE 10 MG TABLET PO SCH (07:37)
[2022-07-08] MEDS: ETHYL ALCOHOL 62% ANTISEPTIC NASAL SANITIZER 0.6 ML AMPUL NASAL SCH ×2 (07:38→20:58)
[2022-07-08] MEDS: 0.9% SODIUM CHLORIDE 10 ML SYRINGE IVP SCH ×2 (07:53→20:57)
[2022-07-08] MEDS: MetFORMIN HCL 500 MG TABLET PO SCH ×2 (08:02→17:10)
[2022-07-08 08:46] VITALS: BP 128/62
[2022-07-08 09:19] LABS: BASOPHILS % (AUTO) 0.3 % (0.0-2.0); EOSINOPHILS % (AUTO) 0.3 % (1.0-6.0); HEMATOCRIT 28.2 % (36-46); HEMOGLOBIN 9.6 g/dL (12.0-16.0); LYMPHOCYTES # (AUTO) 1.3 K/uL (1.0-4.8); MEAN CORPUSCULAR HEMOGLOBIN 31.6 pg (26.0-34.0); MEAN CORPUSCULAR HGB CONC 34.2 G/dL (31.0-37.0); MEAN CORPUSCULAR VOLUME 93 fL (80-100); MONOCYTES # (AUTO) 0.4 K/uL (0.1-1.0); MONOCYTES % (AUTO) 4.7 % (2.0-9.0); NEUTROPHILS # (AUTO) 6.9 K/uL (1.8-7.7); NEUTROPHILS % (AUTO) 79.7 % (40.0-70.0); PLATELET COUNT (AUTO) 475 K/uL (150-450); RED BLOOD CELL COUNT(AUTO) 3.04 MIL/uL (4.00-5.20); RED CELL DISTRIBUTION WIDTH 16.5 % (11.5-14.5)
[2022-07-08] MEDS: ACETAMINOPHEN 325 MG TABLET PO PRN (10:00)
[2022-07-08] MEDS: ASPIRIN 81 MG CHEWABLE TABLET PO SCH (10:05)
[2022-07-08] MEDS: ENOXAPARIN SODIUM 30 MG/0.3 ML PF SYRINGE SQ SCH ×2 (10:05→20:53)
[2022-07-08] MEDS: SOD FERRIC GLUC COMPLX/SUCROSE 125 MG in SODIUM CHLORIDE 0.9% 100 ML IV SCH (10:06)
[2022-07-08] MEDS: CIPROFLOXACIN HCL 500 MG TABLET PO SCH ×2 (10:06→20:59)
[2022-07-08 12:26] LABS: GLUCOMETER DEV NAME(LOC) 2WR.1C; GLUCOSE,POINT OF CARE 250 MG/DL (70-110)
[2022-07-08] MEDS: ONDANSETRON HCL 4 MG TABLET PO PRN (13:39)
[2022-07-08 17:16] LABS: GLUCOMETER DEV NAME(LOC) 2WR.1C; GLUCOSE,POINT OF CARE 133 MG/DL (70-110)
[2022-07-08] MEDS: BISACODYL 10 MG RECTAL RECTAL SUPPOSITORY PR SCH (18:17)
[2022-07-08 20:00] VITALS: BP 146/68
[2022-07-08] MEDS: MELATONIN 3 MG TABLET PO SCH (20:59)
[2022-07-08] MEDS: SENNA 187 MG TABLET PO SCH (21:00)
[2022-07-08 21:52] LABS: GLUCOMETER DEV NAME(LOC) 2WR.1C; GLUCOSE,POINT OF CARE 184 MG/DL (70-110)
[2022-07-09] MEDS: ONDANSETRON HCL 4 MG TABLET PO PRN (01:18)
[2022-07-09] MEDS: LEVOTHYROXINE SODIUM 88 MCG TABLET PO SCH (06:19)
[2022-07-09 07:30] VITALS: BP 121/56
[2022-07-09] MEDS: PANTOPRAZOLE SODIUM 40 MG/VIAL IVP SCH (08:18)
[2022-07-09] MEDS: MetFORMIN HCL 500 MG TABLET PO SCH (08:18)
[2022-07-09] MEDS: ASPIRIN 81 MG CHEWABLE TABLET PO SCH (08:18)
[2022-07-09] MEDS: [UNRECOGNIZED DRUG - OTHER] OU SCH ×2 (08:19→12:51)
[2022-07-09] MEDS: ETHYL ALCOHOL 62% ANTISEPTIC NASAL SANITIZER 0.6 ML AMPUL NASAL SCH (08:19)
[2022-07-09] MEDS: CIPROFLOXACIN HCL 500 MG TABLET PO SCH (08:20)
[2022-07-09] MEDS: LevETIRAcetam 500 MG TABLET PO SCH (08:20)
[2022-07-09] MEDS: CITALOPRAM HYDROBROMIDE 10 MG TABLET PO SCH (08:20)
[2022-07-09] MEDS: MAGNESIUM OXIDE 400 MG TABLET PO SCH (08:20)
[2022-07-09] MEDS: VITAMIN B COMPLEX/FOLIC ACID 1 TABLET PO SCH (08:20)
[2022-07-09] MEDS: DOCUSATE SODIUM 250 MG CAPSULE PO SCH (08:20)
[2022-07-09] MEDS: ENOXAPARIN SODIUM 30 MG/0.3 ML PF SYRINGE SQ SCH (08:21)
[2022-07-09] MEDS: CALCIUM CARBONATE 500 MG TABLET PO SCH (08:21)
[2022-07-09] MEDS: EZETIMIBE 10 MG TABLET PO SCH (08:21)
[2022-07-09] MEDS: CHOLECALCIFEROL (VIT D3) 1,000 UNITS [25 MCG] TABLET PO SCH (08:21)
[2022-07-09] MEDS: LORATADINE 10 MG TABLET PO SCH (08:21)
[2022-07-09] MEDS: OMEGA-3/DHA/EPA/FISH OIL 1,000 MG CAPSULE PO SCH (08:22)
[2022-07-09] MEDS: INSULIN LISPRO 100 UNITS/ML SQ PRN ×2 (08:24→12:56)
[2022-07-09] MEDS ORDERED: SODIUM CHLORIDE 0.9% 500 ML IV ONE (09:24)
[2022-07-09] MEDS: SOD FERRIC GLUC COMPLX/SUCROSE 125 MG in SODIUM CHLORIDE 0.9% 100 ML IV SCH (09:27)
[2022-07-09] MEDS: 0.9% SODIUM CHLORIDE 10 ML SYRINGE IVP SCH (09:41)
[2022-07-09] MEDS: ACETAMINOPHEN 325 MG TABLET PO PRN (10:53)
[2022-07-09] MEDS ORDERED: SODIUM CHLORIDE 0.9% 100 ML ONE (15:35)
[2022-07-09] MEDS ORDERED: IOHEXOL 350 MG/ML 100 ML VIAL ONE (15:35)
[2022-07-09 20:16] LABS: GLUCOMETER DEV NAME(LOC) 2WR.1C; GLUCOSE,POINT OF CARE 155 MG/DL (70-110)
[2022-07-09 20:16] LABS: GLUCOMETER DEV NAME(LOC) 2WR.1C; GLUCOSE,POINT OF CARE 155 MG/DL (70-110)
== END 2022-07-09 18:28 | disposition short-term general hospital (02) | DRG 56 ==
LOC: 2WR 15:30
PROVIDERS: ADMIT Physical Medicine & Rehabilitation; ATTEND Physical Medicine & Rehabilitation
PROC: 0DB68ZX Excision of Stomach, Via Natural or Artificial Opening Endoscopic, Diagnostic (ICD-10-PCS; principal; 2022-07-07 07:00)
DX: G81.94 Hemiplegia, unspecified affecting left nondominant side (principal); I63.529 Cerebral infarction due to unspecified occlusion or stenosis of unspecified anterior cerebral artery; K22.11 Ulcer of esophagus with bleeding; K22.6 Gastro-esophageal laceration-hemorrhage syndrome; E87.1 Hypo-osmolality and hyponatremia; I82.4Z2 Acute embolism and thrombosis of unspecified deep veins of left distal lower extremity; N39.0 Urinary tract infection, site not specified; K29.70 Gastritis, unspecified, without bleeding; D64.9 Anemia, unspecified; E03.9 Hypothyroidism, unspecified; E11.42 Type 2 diabetes mellitus with diabetic polyneuropathy; E78.5 Hyperlipidemia, unspecified; F32.A Depression, unspecified; G40.909 Epilepsy, unspecified, not intractable, without status epilepticus; I10 Essential (primary) hypertension; F41.9 Anxiety disorder, unspecified; K44.9 Diaphragmatic hernia without obstruction or gangrene; R15.9 Full incontinence of feces; K76.0 Fatty (change of) liver, not elsewhere classified; M85.80 Other specified disorders of bone density and structure, unspecified site; Z20.822 Contact with and (suspected) exposure to COVID-19; R32 Unspecified urinary incontinence; Z79.899 Other long term (current) drug therapy; Z82.49 Family history of ischemic heart disease and other diseases of the circulatory system; Z83.3 Family history of diabetes mellitus; Z86.73 Personal history of transient ischemic attack (TIA), and cerebral infarction without residual deficits; Z79.82 Long term (current) use of aspirin
CPT/HCPCS: 70496; 70498; 80048; 80053; 81001; 82271; 82948; 82962; 83540; 83550; 85025; 85610; 86850; 86900; 86901; 86923; 87081; 87086; 92507; 92526; 93005; 93970; 97110; 97112; 97116; 97150; 97163; 97166; 97530; 97535; 99366; C9113; J0171; J0461; J1200; J1650; J2310; J2704; J2916; J3490; J7040; J7050; J7120; J8540; P9016; Q0162; Q9967